=== PATIENT | male | born 1965 | race African-American/Black ===

== ENCOUNTER 2018-04-12 10:41 | Emergency (ER) | payer MEDICAID, OTHER ==
[~2018-04-12] VITALS: Ht 177.8 cm; Wt 82.0 kg
[2018-04-12 11:02] VITALS: BP 133/90
== END 2018-04-12 14:15 | disposition left against medical advice (07) ==
LOC: ER 10:56
DX: R68.89 Other general symptoms and signs (principal); Z53.21 Procedure and treatment not carried out due to patient leaving prior to being seen by health care provider